=== PATIENT | female | born 1970 | race Caucasian/White ===

== ENCOUNTER 2016-06-01 07:16 | Day surgery (SDC) | payer OTHER ==
[2016-05-28 13:44] LABS: HEMATOCRIT 43.4 % (36.0-48.0); HEMOGLOBIN 14.6 g/dL (12.0-16.0)
[2016-05-28 14:04] LABS: ALBUMIN 3.7 G/DL (3.5-5.0); ALKALINE PHOSPHATASE 92 U/L (45-117); BUN (BLOOD UREA NITROGEN) 14 MG/DL (6-23); CALCIUM, SERUM 8.8 MG/DL (8.5-10.4); CHLORIDE, SERUM 107 MMOL/L (96-112); CO2 (CARBON DIOXIDE) 28 MMOL/L (24-34); CREATININE 0.75 MG/DL (0.55-1.02); GFR AFRICAN AMERICAN 111 ML/MIN (>=60); GFR NON AFRICAN AMERICAN 96 ML/MIN (>=60); GLOBULIN 3.6 G/DL (2.5-4.1); GLUCOSE, SERUM 81 MG/DL (60-99); POTASSIUM, SERUM 3.8 MMOL/L (3.5-5.3); SGOT(AST) 21 U/L (5-40); SGPT(ALT) 34 U/L (5-65); SODIUM, SERUM 143 MMOL/L (135-148); TOTAL BILIRUBIN 0.5 MG/DL (0-1.2); TOTAL PROTEIN 7.3 G/DL (6.0-8.5)
--- NOTE | ~2016-06-01 | OP ---
Record Of Operation [facility] [address] [place]. [address] NAME: TERESA MORRISON : 68 STATUS : [facility]#: [id number] AGE: 45 ADM/REG DATE : 06/01/16 MR#: [id number] REPORT SERV DATE: 06/02/16 DICTATED BY: ANALILIA LEWIS DATE: 06/02/16 REPORT STATUS : Draft TRANSCRIBED BY: MODL DATE: 06/02/16 DATE OF PROCEDURE: 06/01/2016 OPERATION PERFORMED: Laparoscopic cholecystectomy. PREOPERATIVE DIAGNOSIS: Symptomatic cholelithiasis. POSTOPERATIVE DIAGNOSIS: Symptomatic cholelithiasis. ANESTHESIA: General anesthetic as well as local anesthetic. ESTIMATED BLOOD LOSS: 10 mL. COMPLICATIONS: None. DESCRIPTION OF SPECIMEN: Gallbladder with gallstones. DESCRIPTION OF THE OPERATION: The patient was taken to the operating room and placed into the supine position. General endotracheal anesthesia was then introduced. The patient's abdomen was sterilely prepped and draped in the standard surgical fashion. Following this, a scalpel was used to make a 9 mm incision just to the right of the patient's umbilicus. Following this, towel clips were used to tent the abdominal wall and a 9 mm Optiview scope was carefully introduced in the peritoneal cavity under direct visualization while tenting the abdominal wall. Intraperitoneal placement was confirmed visually at this time. Camera trocar were removed. The camera was reintroduced into standard trocar. Subsequently, two 5 mm ports were placed along the right costal margin as well as additional 10 mm port in the epigastrium. The peritoneal cavity was inspected and no abnormalities were found. The patient was placed in reverse Trendelenburg position with the right side up. Omental attachments to the gallbladder were gently swept away using an atraumatic grasper, and this grasper used to grasp the fundus of the gallbladder and retracted superiorly over the dome of the liver. Filmy adhesions between the gallbladder and the omentum were also taken down. The infundibulum was identified and subsequently retracted laterally using another grasper. This maneuver exposed close triangle. The peritoneum overlying the gallbladder infundibulum was dissected using Lisa. The posterior peritoneum was then dissected. The triangle was dissected to expose the cystic duct, the cystic artery, and Calot's node. Once these structures were carefully identified and dissected and freely visible, Endo clips were placed on the cystic duct and then the cystic artery. The cystic artery was then divided. Once it was determined that the only structure remaining entering the gallbladder was the cystic duct and the junction of the cystic duct into the gallbladder was clearly identified, it was divided after being doubly clipped. Electrocautery was then used to separate the peritoneal attachments between the gallbladder and in the bed of the liver. The gallbladder fossa and cystic artery were inspected to ensure no bleeding. Hemostasis was achieved with electrocautery as well as . The gallbladder once freed was placed in an endoscopic retrieval bag and easily removed from the abdomen through the epigastric port. The specimen was sent to pathology. Following this all incisions were closed using 4-0 Monocryl sutures in an interrupted subcuticular fashion. The port sites were injected with Record Of Operation [address] [place]. [address] NAME: TERESA MORRISON : 68 STATUS : [facility]#: [id number] AGE: 45 ADM/REG DATE : 06/01/16 MR#: [id number] REPORT SERV DATE: 06/02/16 DICTATED BY: ANALILIA LEWIS DATE: 06/02/16 REPORT STATUS : Draft TRANSCRIBED BY: ELLA DATE: 06/02/16 Marcaine for anesthetic. The operative field was cleansed and dried. Telfa and Tegaderm were then applied to the port sites. There were no intraoperative complications. The estimated blood loss was 10 mL. All instrument and sponge counts were correct. The patient was extubated and transferred to the PACU in stable condition. DICTATED BY: Pk MILNER/ELLA Analilia Lewis M.D. / [id number] CC: Edis Stevens
[~2016-06-01 07:16] MED LIST: LEVSINTAB PO; NORCO1 TA1 PO; PR25 PO
== END 2016-06-01 18:03 | disposition home or self-care (01) ==
LOC: SDC 07:16
PROVIDERS: Specialist
PROC: 0FT44ZZ Resection of Gallbladder, Percutaneous Endoscopic Approach (ICD-10-PCS; principal; 2016-06-01 08:45)
DX: K80.10 Calculus of gallbladder with chronic cholecystitis without obstruction (principal); Z79.899 Other long term (current) drug therapy; Z79.891 Long term (current) use of opiate analgesic
CPT/HCPCS: 80053; 84703; 85014; 85018; 88304; J0690; J1170; J1885; J2175; J2250; J2405; J2550; J2710; J3010; Q9967